=== PATIENT | female | born 1990 | race American Indian/Alaskan Native ===

== ENCOUNTER 2021-03-04 02:36 | Emergency (ER) | payer MEDICAID ==
[2021-03-04] MEDS ORDERED: SODIUM CHLORIDE 0.9% 1000 ML 1,000 ML IV ONE (04:26)
[2021-03-04] MEDS ORDERED: ONDANSETRON 4 MG/2 ML INJ IV ONE (04:26)
--- NOTE | 2021-03-04 04:30 | Emergency Department Report ---
<BETTY DAVENPORT - Last Filed: 03/04/21 07:07> ED General Adult HPI - General Chief complaint: Syncope Stated complaint: FAINTING, SOB Time Seen by Provider: 03/04/21 04:21 - Related Data Previous Rx's Medication Instructions Recorded Last Taken Type Ibuprofen [Motrin 600 MG tab] 600 mg PO Q8H PRN #60 tablet 03/28/15 Unknown Rx Ondansetron [Zofran Odt] 4 mg PO Q8HR PRN #14 tab.rapdis 03/04/21 Unknown Rx Allergies Allergy/AdvReac Type Severity Reaction Status Date / Time No Known Allergies Allergy Verified 03/04/21 04:42 ED Past Medical Hx - Medications Home Medications: Home Medications Medication Instructions Recorded Confirmed Last Taken Type Ibuprofen [Motrin 600 MG tab] 600 mg PO Q8H PRN #60 tablet 03/28/15 Unknown Rx Ondansetron [Zofran Odt] 4 mg PO Q8HR PRN #14 tab.rapdis 03/04/21 Unknown Rx ED Course - Reevaluation(s) Reevaluation #1: 03/04/21 07:09 Patient signed out to myself by the overnight physician. Went back to personally evaluate and examined this patient, after reviewing history, physical, laboratory studies and imaging studies. Patient is a 30-year-old female, who denies chronic medical issues, who is approximately 7 months , who presents to the ER today with complaint of painless lightheadedness. The patient specifically denies loss of consciousness, and reports that while walking, yesterday, and the day before, she felt lightheaded, felt like she had to steady herself on the wall, and had to lower herself down to the ground, but did not pass out or lose consciousness. There is no shaking or convulsive activity either. The patient denies travel, surgery, leg pain, leg swelling, immobilization, and personal/family history of DVT. She does report chronic nonspecific intermittent shortness of breath which has been present for over 7 months, and prior to the inception of her . She reports that she feels like she fell onto her right hand side, but does not have any significant physical pain there. She denies Covid symptomatology and urinary symptoms. She is awake, alert, oriented, sober, with a GCS of 15, and a nonfocal neur ologic examination at this time. Laboratory studies, ultrasound, EKG unremarkable. The patient is low risk for major adverse cardiac event as per the [place] syncope rule: -3 points [place] Syncope Risk Score Very low risk 0.4% risk of 30-day serious adverse event Suspect dehydration and/or vagal event. Given that the patient is not tachycardic, not hypoxic, given that she endorses several months of nonspecific shortness of breath which is not a new, worsened or different, given that patient did not lose consciousness, or truly have an event of syncope, I think a pulmonary embolism is very unlikely. The patient is counseled to not drive or operate motor vehicles, and she is counseled to follow-up with an outpatient money room supervisor within the next week. She has been observed in this ER for a few hours without clinical decompensation. Because she is a viable , we did recommend observation in labor and delivery, have discussed this with covering SCHOOL BOAT DRIVER, Dr. Hoang, who is amenable to monitoring. Urinalysis with 11 epithelial cells, no irritative or obstructive urinary symptoms, minimal contamination, however, patient denies urinary symptoms, leukoesterase negative, nitrate negative, would not initiate antibiotic therapy at this time. 03/04/21 07:12 03/04/21 07:14 ED Medical Decision Making - Lab Data Result diagrams: 03/04/21 04:34 03/04/21 04:34 Vital Signs 03/04/21 03/04/21 03/04/21 03:03 04:31 04:45 Temperature 98.4 F Pulse Rate 115 H 105 H 89 Respiratory 17 25 H 15 Rate Blood Pressure 133/51 111/67 106/57 O2 Sat by Pulse 100 100 99 Oximetry 03/04/21 03/04/21 03/04/21 05:01 05:15 05:31 Temperature Pulse Rate 96 H 93 H Respiratory 18 16 16 Rate Blood Pressure 109/59 107/62 108/70 O2 Sat by Pulse 100 100 100 Oximetry 03/04/21 03/04/21 03/04/21 05:45 06:01 06:15 Temperature Pulse Rate 97 H 96 H Respiratory 19 22 Rate Blood Pressure 104/60 106/67 119/65 O2 Sat by Pulse 100 100 100 Oximetry 03/04/21 03/04/21 06:31 06:45 Temperature Pulse Rate 97 H 90 Respiratory 19 13 Rate Blood Pressure 114/63 116/74 O2 Sat by Pulse 100 100 Oximetry Lab Results 03/04/21 03/04/21 03/04/21 Range/Units 04:34 04:34 06:53 WBC 10.7 (4.5-11.0) K/mm3 RBC 3.86 (3.65-5.03) M/mm3 Hgb 11.9 (10.1-14.3) gm/dl Hct 34.4 (30.3-42.9) % MCV 89 (79-97) fl MCH 31 (28-32) pg MCHC 35 H (30-34) % RDW 13.7 (13.2-15.2) % Plt Count 275 (140-440) K/mm3 Lymph % (Auto) 20.2 (13.4-35.0) % [place] % (Auto) 5.5 (0.0-7.3) % Eos % (Auto) 0.8 (0.0-4.3) % Baso % (Auto) 0.3 (0.0-1.8) % Lymph # (Auto) 2.2 (1.2-5.4) K/mm3 [place] # (Auto) 0.6 (0.0-0.8) K/mm3 Eos # (Auto) 0.1 (0.0-0.4) K/mm3 Baso # (Auto) 0.0 (0.0-0.1) K/mm3 Seg Neutrophils % 73.2 H (40.0-70.0) % Seg Neutrophils # 7.8 H (1.8-7.7) K/mm3 Sodium 136 L (137-145) mmol/L Potassium 3.7 (3.6-5.0) mmol/L Chloride 100.9 (98-107) mmol/L Carbon Dioxide 23 (22-30) mmol/L Anion Gap 16 mmol/L BUN 5 L (7-17) mg/dL Creatinine 0.5 L (0.6-1.2) mg/dL Estimated GFR > 60 ml/min BUN/Creatinine Ratio 10 % Glucose 115 H (65-100) mg/dL Calcium 9.0 (8.4-10.2) mg/dL Total Bilirubin < 0.20 (0.1-1.2) mg/dL Direct Bilirubin < 0.2 (0-0.2) mg/dL Indirect Bilirubin 0.0 mg/dL AST 19 (5-40) units/L ALT 18 (7-56) units/L Alkaline Phosphatase 106 (35-129) units/L Troponin T < 0.010 (0.00-0.029) ng/mL Total Protein 6.4 (6.3-8.2) g/dL Albumin 3.7 L (3.9-5) g/dL Albumin/Globulin Ratio 1.4 % Urine Color (Yellow) Urine Turbidity (Clear) Urine pH (5.0-7.0) Ur Specific [place] (1.003-1.030) Urine Protein (Negative) mg/dL Urine Glucose (UA) (Negative) mg/dL Urine Ketones (Negative) mg/dL Urine Blood (Negative) Urine Nitrite (Negative) Urine Bilirubin (Negative) Urine Urobilinogen (<2.0) mg/dL Ur Leukocyte Esterase (Negative) Urine WBC (Auto) (0.0-6.0) /HPF Urine RBC (Auto) (0.0-6.0) /HPF U Epithel Cells (Auto) (0-13.0) /HPF Urine Bacteria (Auto) (Negative) /HPF Urine Opiates Screen Urine Methadone Screen Ur Barbiturates Screen Ur Phencyclidine Scrn Ur Amphetamines Screen U Benzodiazepines Scrn Urine Cocaine Screen U Marijuana (THC) Screen 03/04/21 03/04/21 Range/Units Unknown Unknown WBC (4.5-11.0) K/mm3 RBC (3.65-5.03) M/mm3 Hgb (10.1-14.3) gm/dl Hct (30.3-42.9) % MCV (79-97) fl MCH (28-32) pg MCHC (30-34) % RDW (13.2-15.2) % Plt Count (140-440) K/mm3 Lymph % (Auto) (13.4-35.0) % [place] % (Auto) (0.0-7.3) % Eos % (Auto) (0.0-4.3) % Baso % (Auto) (0.0-1.8) % Lymph # (Auto) (1.2-5.4) K/mm3 [place] # (Auto) (0.0-0.8) K/mm3 Eos # (Auto) (0.0-0.4) K/mm3 Baso # (Auto) (0.0-0.1) K/mm3 Seg Neutrophils % (40.0-70.0) % Seg Neutrophils # (1.8-7.7) K/mm3 Sodium (137-145) mmol/L Potassium (3.6-5.0) mmol/L Chloride (98-107) mmol/L Carbon Dioxide (22-30) mmol/L Anion Gap mmol/L BUN (7-17) mg/dL Creatinine (0.6-1.2) mg/dL Estimated GFR ml/min BUN/Creatinine Ratio % Glucose (65-100) mg/dL Calcium (8.4-10.2) mg/dL Total Bilirubin (0.1-1.2) mg/dL Direct Bilirubin (0-0.2) mg/dL Indirect Bilirubin mg/dL AST (5-40) units/L ALT (7-56) units/L Alkaline Phosphatase (35-129) units/L Troponin T (0.00-0.029) ng/mL Total Protein (6.3-8.2) g/dL Albumin (3.9-5) g/dL Albumin/Globulin Ratio % Urine Color Yellow (Yellow) Urine Turbidity Slightly-cloudy (Clear) Urine pH 7.0 (5.0-7.0) Ur Specific [place] 1.009 (1.003-1.030) Urine Protein <15 mg/dl (Negative) mg/dL Urine Glucose (UA) Neg (Negative) mg/dL Urine Ketones Neg (Negative) mg/dL Urine Blood Neg (Negative) Urine Nitrite Neg (Negative) Urine Bilirubin Neg (Negative) Urine Urobilinogen < 2.0 (<2.0) mg/dL Ur Leukocyte Esterase Neg (Negative) Urine WBC (Auto) 2.0 (0.0-6.0) /HPF Urine RBC (Auto) 1.0 (0.0-6.0) /HPF U Epithel Cells (Auto) 11.0 (0-13.0) /HPF Urine Bacteria (Auto) 1+ (Negative) /HPF Urine Opiates Screen Negative Urine Methadone Screen Negative Ur Barbiturates Screen Negative Ur Phencyclidine Scrn Negative Ur Amphetamines Screen Negative U Benzodiazepines Scrn Negative Urine Cocaine Screen Negative U Marijuana (THC) Screen Negative - EKG Data -: EKG Interpreted by Ks EKG shows normal: sinus rhythm Rate: normal - EKG Data 03/04/21 07:08 EKG interpreted at 06: 00 Sinus rhythm, 94 bpm. Normal axis, normal intervals, high left ventricular voltage. This EKG is not a STEMI. This is an unremarkable EKG. There is no prior for comparison. - Radiology Data Radiology results: report reviewed, image reviewed [facility] [address] [place] [address] Ultrasound Report Signed Patient: MUNA CHAVEZ MR#: [id number] : 1990 Acct:[id number] Age/Sex: 30 / F ADM Date: 03/04/21 Loc: ED Attending Dr: Ordering Physician: JADA BRAVO Date of Service: 03/04/21 Procedure(s): US OB follow up Accession Number(s): [id number] cc: JADA Lerma US OB follow up INDICATION: Syncope, . TECHNIQUE: Transabdominal. COMPARISON: None available. FINDINGS: There is a single intrauterine . Biparietal Diameter = 6.4 cm Head Circumference = 24.3 cm Abdominal Circumference = 20.9 cm Femur Length = 4.8 cm Heart Rate: 157 beats per minute. Estimated Weight in grams (if calculated): 860 Position: cephalic. Cervix: closed. Length in cm (if measured): 3.2 Placenta: Grade 1 and free of the os. Amniotic Fluid Volume: normal Amniotic Fluid Index (AELE) in cm (if calculated): 13.8. Maternal Adnexa: Not well visualized. IMPRESSION: 1. Single, living intrauterine with estimated sonographic age of 26 weeks, 0 day(s). 2. No significant sonographic abnormality. Signer Name: Stefan Riggins MD Signed: 03/04/2021 6:47 AM Workstation Name: [id number] Transcribed By: CS Dictated By: Stefan Riggins MD Electronically Authenticated By: Stefan Riggins MD Signed Date/Time: 03/04/21646 DD/ 4 ED Disposition Clinical Impression: Nausea, Lightheadedness Qualifiers: Weeks of gestation: 26 weeks Qualified Code(s): Z3A.26 - 26 weeks gestation of Disposition: DC-01 TO HOME OR SELFCARE Is pt being admited?: No Does the pt Need Aspirin: No Condition: Good Instructions: Eating Plan for Women, Syncope, [id number], Syncope (ED) Additional Instructions: Recommend that patient eat at least 4-5 small meals per day. Recommend that patient drink 4 to 6 cups of water per day. Recommend that patient not drive, or operate motor vehicles until cleared to do so by a primary care physician or money room supervisor. We do recommend follow-up with a money room supervisor within the next 5 to 7 days. For the patient's convenience, a number of local cardiology practices have been listed. Patient had laboratory studies today which were unremarkable, and EKG today which was unremarkable, and an obstetrics ultrasound which showed an appropriate intrauterine , at 26 weeks gestation, with no obvious complications. Please continue current outpatient medications and vitamins. Please follow-up with your outpatient SCHOOL BOAT DRIVER within the next week, or as scheduled. Please return to the emergency room right away with new pain, worsened pain, migration of pain, projectile vomiting, change in mental status, confusion, inability to tolerate liquid feeds, new, worsened or different symptoms not present on the initial emergency room evaluation. Prescriptions: Ondansetron [Zofran Odt] 4 mg PO Q8HR PRN #14 tab.rapdis PRN Reason: Nausea And Vomiting Referrals: CONRAD LAMB MD [Primary Care Provider] - 3-5 Days [facility] [Provider Group] - 3-5 Days [facility] [Provider Group] - 3-5 Days <JADA BRAVO - Last Filed: 03/04/21 16:24> ED General Adult HPI - General Source: patient Mode of arrival: Ambulatory Limitations: No Limitations - History of Present Illness Initial comments: Patient is 30 years old female 3 para 2 at 7 months gestation. Patient presented with chief complaint of syncope that happened twice yesterday. Patient denied any passing out however she said that she fainted. Patient stated that she has some nausea but no vomiting. Patient denied any abdominal pain, vaginal bleeding or vaginal discharge. No chest pain or shortness of breath. Patient stated that she is followed by [facility]. ED Review of Systems ROS: Stated complaint: FAINTING, SOB Other details as noted in HPI Comment: All other systems reviewed and negative Constitutional: denies: chills, fever Respiratory: denies: cough, shortness of breath Cardiovascular: palpitations. denies: chest pain Gastrointestinal: nausea. denies: abdominal pain, vomiting, diarrhea, constipation, hematemesis, melena, hematochezia Musculoskeletal: denies: back pain Neurological: denies: headache, weakness ED Past Medical Hx - Past Medical History Hx Hypertension: No Hx Congestive Heart Failure: No Hx Diabetes: No Hx Deep Vein Thrombosis: No Hx Renal Disease: No Hx Sickle Cell Disease: No Hx Seizures: No Hx Asthma: No Hx COPD: No Hx HIV: No Additional medical history: childbirth - Surgical History Additional Surgical History: x 2 - Social History Smoking Status: Never Smoker Substance Use Type: None ED Physical Exam - General Limitations: No Limitations General appearance: alert, in no apparent distress - Head Head exam: Present: atraumatic, normocephalic, normal inspection - Eye Eye exam: Present: normal appearance, PERRL - ENT ENT exam: Present: mucous membranes dry - Neck Neck exam: Present: normal inspection, full ROM. Absent: tenderness, meningismus - Respiratory Respiratory exam: Present: normal lung sounds bilaterally - Cardiovascular Cardiovascular Exam: Present: regular rate, normal rhythm, normal heart sounds - GI/Abdominal GI/Abdominal exam: Present: soft, normal bowel sounds. Absent: distended, tenderness, guarding, rebound, rigid, organomegaly, mass, bruit, pulsatile mass, hernia - Extremities Exam Extremities exam: Present: normal inspection, full ROM, normal capillary refill. Absent: pedal edema, calf tenderness - Back Exam Back exam: Present: normal inspection, full ROM. Absent: CVA tenderness (R), CVA tenderness (L) - Neurological Exam Neurological exam: Present: alert, oriented X3, CN II-XII intact - Psychiatric Psychiatric exam: Present: normal mood - Skin Skin exam: Present: warm, intact, normal color ED Course Vital Signs 03/04/21 03/04/21 03/04/21 03:03 04:31 04:45 Temperature 98.4 F Pulse Rate 115 H 105 H 89 Respiratory 17 25 H 15 Rate Blood Pressure 133/51 111/67 106/57 O2 Sat by Pulse 100 100 99 Oximetry 03/04/21 03/04/21 03/04/21 05:01 05:15 05:31 Temperature Pulse Rate 96 H 93 H Respiratory 18 16 16 Rate Blood Pressure 109/59 107/62 108/70 O2 Sat by Pulse 100 100 100 Oximetry 03/04/21 03/04/21 03/04/21 05:45 06:01 06:15 Temperature Pulse Rate 97 H 96 H Respiratory 19 22 Rate Blood Pressure 104/60 106/67 119/65 O2 Sat by Pulse 100 100 100 Oximetry 03/04/21 03/04/21 03/04/21 06:31 06:45 07:01 Temperature Pulse Rate 97 H 90 91 H Respiratory 19 13 18 Rate Blood Pressure 114/63 116/74 112/64 O2 Sat by Pulse 100 100 100 Oximetry 03/04/21 03/04/21 07:15 07:31 Temperature Pulse Rate 98 H 93 H Respiratory 21 14 Rate Blood Pressure 119/76 112/62 O2 Sat by Pulse 100 100 Oximetry ED Medical Decision Making - Lab Data Result diagrams: 03/04/21 04:34 03/04/21 04:34 - Medical Decision Making Patient is 30 years old female 3 para 2 at 7 months gestation. Patient presented with chief complaint of syncope that happened twice yesterday. Patient denied any passing out however she said that she fainted. Patient stated that she has some nausea but no vomiting. Patient denied any abdominal pain, vaginal bleeding or vaginal discharge. No chest pain or shortness of breath. Patient stated that she is followed by [facility]. Critical care attestation.: If time is entered above; I have spent that time in minutes in the direct care of this critically ill patient, excluding procedure time. ED Disposition Is pt being admited?: No
[2021-03-04 04:45] LABS: Basophils % (Auto) 0.3 % (0.0-1.8); Eosinophils # (Auto) 0.1 K/mm3 (0.0-0.4); Eosinophils % (Auto) 0.8 % (0.0-4.3); Hematocrit 34.4 % (30.3-42.9); Hemoglobin 11.9 gm/dl (10.1-14.3); Lymphocytes # (Auto) 2.2 K/mm3 (1.2-5.4); Lymphocytes % (Auto) 20.2 % (13.4-35.0); Mean Corpuscular HGB Conc 35 % (30-34); Mean Corpuscular Volume 89 fl (79-97); Monocytes # (Auto) 0.6 K/mm3 (0.0-0.8); Monocytes % (Auto) 5.5 % (0.0-7.3); Platelet Count 275 K/mm3 (140-440); Red Blood Count 3.86 M/mm3 (3.65-5.03); Red Cell Distribution Width 13.7 % (13.2-15.2)
[2021-03-04 05:07] LABS: Alanine Aminotransferase 18 units/L (7-56); Albumin 3.7 g/dL (3.9-5); Blood Urea Nitrogen 5 mg/dL (7-17); Hemolysis Index 1
[2021-03-04 05:10] LABS: BUN/Creatinine Ratio 10; Bilirubin,Direct < 0.2 mg/dL (0-0.2)
[2021-03-04 06:18] LABS: Bacteria,Urine 1+ /HPF (Negative); Bilirubin,Urine NEG (Negative); Blood,Urine NEG (Negative); Color,Urine Yellow (Yellow); Protein,Urine <15 mg/dL mg/dL (Negative); Urobilinogen,Urine < 2.0 mg/dL (<2.0)
--- NOTE | 2021-03-04 06:51 | Ultrasound Report ---
US OB follow up INDICATION: Syncope, . TECHNIQUE: Transabdominal. COMPARISON: None available. FINDINGS: There is a single intrauterine . Biparietal Diameter = 6.4 cm Head Circumference = 24.3 cm Abdominal Circumference = 20.9 cm Femur Length = 4.8 cm Heart Rate: 157 beats per minute. Estimated Weight in grams (if calculated): 860 Position: cephalic. Cervix: closed. Length in cm (if measured): 3.2 Placenta: Grade 1 and free of the os. Amniotic Fluid Volume: normal Amniotic Fluid Index (ALEE) in cm (if calculated): 13.8. Maternal Adnexa: Not well visualized. IMPRESSION: 1. Single, living intrauterine with estimated sonographic age of 26 weeks, 0 day(s). 2. No significant sonographic abnormality. Signer Name: Stefan Riggins MD Signed: 03/04/2021 6:47 AM Workstation Name: [id number]
[2021-03-04 07:04] LABS: Amphetamine Screen,Urine Negative; Benzodiazepines Screen,Urine Negative; Cannabinoid Screen,Urine Negative; Cocaine Screen,Urine Negative; Methadone Screen,Urine Negative; Opiate Screen,Urine Negative
[2021-03-04 08:47] VITALS: BP 112/62
--- NOTE | 2021-03-05 17:52 | Electrocardiograph Report ---
[facility] Test Date: 2021-03-04 Test Time: 06:00:34 Pat Name: MUNA CHAVEZ Department: Room: Gender: F Outside Sales Consultant: LEONIE : 1990 Requested By: JADA BRAVO Order Number: [id number] Reading MD: Clarissa Sunshine Measurements Intervals [place] Rate: 94 P: 59 TN: 159 QRS: 79 QRSD: 77 T: 24 QT: 351 QTc: 439 Interpretive Statements Sinus rhythm No previous ECG available for comparison Electronically Signed On 03-05-2021 17:52:30 EDT by Clarissa Sunshine
== END 2021-03-04 08:52 | disposition home or self-care (01) ==
LOC: ED 02:36
DX: O26.892 Other specified pregnancy related conditions, second trimester (principal); R11.0 Nausea; R42 Dizziness and giddiness; Z3A.26 26 weeks gestation of pregnancy; Z98.890 Other specified postprocedural states; Z79.1 Long term (current) use of non-steroidal anti-inflammatories (NSAID); Z79.899 Other long term (current) drug therapy
CPT/HCPCS: 36415; 76816; 80048; 80076; 80307; 81001; 84484; 85025; 93005; 96361; 96374; 99284; J2405; J7030

== ENCOUNTER 2021-06-05 02:50 | Inpatient (IN) | payer MEDICAID ==
[2021-06-05] MEDS ORDERED: LACTATED RINGERS 1,000 ML ONE (03:23)
[2021-06-05] MEDS ORDERED: LACTATED RINGERS 1,000 ML IV ONE (03:43)
[2021-06-05 04:28] LABS: Basophils % (Auto) 0.3 % (0.0-1.8); Eosinophils % (Auto) 0.5 % (0.0-4.3); Hematocrit 33.4 % (30.3-42.9); Hemoglobin 10.7 gm/dl (10.1-14.3); Lymphocytes # (Auto) 2.4 K/mm3 (1.2-5.4); Lymphocytes % (Auto) 27.6 % (13.4-35.0); Mean Corpuscular HGB Conc 32 % (30-34); Mean Corpuscular Volume 81 fl (79-97); Monocytes # (Auto) 0.6 K/mm3 (0.0-0.8); Monocytes % (Auto) 7.4 % (0.0-7.3); Platelet Count 325 K/mm3 (140-440); Red Blood Count 4.13 M/mm3 (3.65-5.03); Red Cell Distribution Width 16.5 % (13.2-15.2)
--- NOTE | 2021-06-05 04:49 | History and Physical Report ---
<CYDNEY DELA CRUZ - Last Filed: 06/05/21 04:40> History of Present Illness Date of examination: 06/05/21 Chief complaint: Spontaneous rupture membranes previous section x2 Patient desires TOLAC and declines repeat section at bedside Past History Past Surgical History: section - Obstetrical History Expected Date of Delivery: 06/10/21 Actual Gestation: 39 Week(s) 2 Day(s) : 3 Para: 2 Medications and Allergies Allergies Allergy/AdvReac Type Severity Reaction Status Date / Time No Known Allergies Allergy Verified 03/04/21 04:42 Home Medications Medication Instructions Recorded Confirmed Last Taken Type Ibuprofen [Motrin 600 MG tab] 600 mg PO Q8H PRN #60 tablet 03/28/15 06/05/21 Unknown Rx Ondansetron [Zofran Odt] 4 mg PO Q8HR PRN #14 tab.rapdis 03/04/21 06/05/21 Unknown Rx Active Meds: Active Medications Lactated Ringer's (Lactated Ringers) 1,000 mls @ 999 mls/hr IV BOLUS ONE Stop: 06/05/21 04:43 - Vital Signs Vital signs: Vital Signs Pulse Pulse Ox 104 H 99 06/05/21 02:54 06/05/21 02:54 Temp Pulse Resp BP Pulse Ox 98.8 F 74 18 130/73 99 06/05/21 02:57 06/05/21 04:39 06/05/21 02:57 06/05/21 02:57 06/05/21 04:39 - Physical Exam Breasts: Positive: deferred Cardiovascular: Regular rate Lungs: Positive: Clear to auscultation Abdomen: Positive: normal appearance, soft, normal bowel sounds Genitourinary (Female): Positive: normal external genitalia, normal perenium Anus/Rectum: Positive: normal perianal skin Extremities: Positive: normal Deep Tendon Reflex Grade: Normal +2 - Obstetrical FHR: category 1 Cervical Dilatation: 1 Cervical Effacement Percentage: 70 station: -2 Uterine Contraction Pattern: Irregular Results Result Diagrams: 06/05/21 03:35 Abnormal lab results 06/05/21 Range/Units 03:35 MCH 26 L (28-32) pg RDW 16.5 H (13.2-15.2) % [place] % (Auto) 7.4 H (0.0-7.3) % All other labs normal. Assessment and Plan Admit continuous monitoring gbs coverage as needed r/b/c and possible side effect reviewed CRafael Dela Cruz MD <NICHELLE CANO JR - Last Filed: 06/05/21 09:06> History of Present Illness Date of admission: 06/05/21 04:59 History of present illness: Patient presenting for spontaneous rupture of membranes at 1 cm with a history of prior x2 adamantly refusing c/s. +FM. Denies PIH symptoms. Past History Past Medical History: no pertinent history Family/Genetic History: hypertension Medications and Allergies Active Meds: Active Medications Acetaminophen (Acetaminophen 325 Mg Tab) 650 mg PO Q4H PRN PRN Reason: Pain, Mild (1-3) Butorphanol Tartrate (Butorphanol 2 Mg/1 Ml Inj) 1 mg IV Q2H PRN PRN Reason: Pain, Moderate(4-6) LABOR PAIN Carboprost Tromethamine (Carboprost Tromethamine 250 Mcg/1 Ml Inj) 250 mcg IM ONCE PRN PRN Reason: Uterine Bleeding Ephedrine Sulfate (Ephedrine Sulfate 50 Mg/1 Ml Inj) 10 mg IV Q2M PRN PRN Reason: Hypotension Fentanyl (Fentanyl 100 Mcg/2 Ml Inj) 100 mcg IV Q2H PRN PRN Reason: Pain,Severe (7-10) LABOR PAIN Oxytocin/Sodium Chloride (Pitocin/Ns 30 Unit/500ml) 30 units in 500 mls @ 2 mls/hr IV TITR MARK; Protocol Lactated Ringer's (Lactated Ringers) 1,000 mls @ 125 mls/hr IV DIRECT MARK Oxytocin/Sodium Chloride (Pitocin/Ns 30 Unit/500ml) 30 units in 500 mls @ 40 mls/hr IV TITR MARK; Protocol Ampicillin Sodium (Ampicillin/Ns 1 Gm/50 Ml) 1 gm in 50 mls @ 100 mls/hr IV Q4H MARK; Protocol Fentanyl/Bupivacaine/Sodium Chlor (Fentanyl-Bupiv 2 Mcg/Ml-0.125%) 200 mcg in 100 mls @ 12 mls/hr EPIDURAL TITR MARK; Protocol Loperamide HCl (Loperamide 2 Mg Cap) 2 mg PO ONCE PRN PRN Reason: give with Hemabate Methylergonovine Maleate (Methylergonovine Maleate 0.2 Mg/Ml Vial) 0.2 mg IM ONCE PRN PRN Reason: Uterine Bleeding Mineral Oil (Mineral Oil 30 Ml Oral Liqd) 30 ml PO QHS PRN PRN Reason: Constipation Misoprostol (Misoprostol 200 Mcg Tab) 800 mcg MT ONCE PRN PRN Reason: Uterine Bleeding Nalbuphine HCl (Nalbuphine 10 Mg/1 Ml Inj) 10 mg IV Q2H PRN PRN Reason: Pain, Moderate (4-6) Naloxone HCl (Naloxone 2 Mg/2 Ml Inj) 0.2 mg IV Q5M PRN PRN Reason: Respiratory sedation Ondansetron HCl (Ondansetron 4 Mg/2 Ml Inj) 4 mg IV Q8H PRN PRN Reason: Nausea And Vomiting Oxytocin (Oxytocin 10 Unit/1 Ml Inj) 10 unit IM ONCE PRN PRN Reason: Uterine Bleeding Promethazine HCl (Promethazine 25 Mg Tab) 25 mg PO Q6H PRN PRN Reason: Nausea And Vomiting Terbutaline Sulfate (Terbutaline 1 Mg/1 Ml Inj) 0.25 mg SUB-Q ONCE PRN PRN Reason: Hyperstimulation/Hypertonicity Review of Systems All systems: negative (expect HPI) - Vital Signs Vital signs: Vital Signs Pulse Pulse Ox 104 H 99 06/05/21 02:54 06/05/21 02:54 Temp Pulse Resp BP Pulse Ox 98.1 F 81 18 112/58 99 06/05/21 07:53 06/05/21 08:59 06/05/21 02:57 06/05/21 08:58 06/05/21 08:59 Results Result Diagrams: 06/05/21 03:35 Abnormal lab results 06/05/21 Range/Units 03:35 MCH 26 L (28-32) pg RDW 16.5 H (13.2-15.2) % [place] % (Auto) 7.4 H (0.0-7.3) % All other labs normal. Assessment and Plan Though with cervical change, fetus now with recurrent late decelerations without any augmentation or induction agents. Spoke with patient and family member multiple times on recommending at this time who are initially resistant to the idea of . However after continue counseling does appear to be agreeable to repeat .
[2021-06-05] MEDS ORDERED: ePHEDrine SULFATE 50 MG/1 ML INJ IV PRN ×2 (04:59→07:30)
[2021-06-05] MEDS ORDERED: miSOPROStol 200 MCG TAB PR PRN (04:59)
[2021-06-05] MEDS ORDERED: NalbUPHINE 10 MG/1 ML INJ IV PRN (04:59)
[2021-06-05] MEDS ORDERED: ONDANSETRON 4 MG/2 ML INJ IV PRN ×2 (04:59→12:00)
[2021-06-05] MEDS ORDERED: LOPERAMIDE 2 MG CAP PO PRN (04:59)
[2021-06-05] MEDS ORDERED: TERBUTALINE 1 MG/1 ML INJ SUB-Q PRN (04:59)
[2021-06-05] MEDS ORDERED: CARBOPROST TROMETHAMINE 250 MCG/1 ML INJ IM PRN (04:59)
[2021-06-05] MEDS ORDERED: MINERAL OIL 30 ML ORAL LIQD PO PRN (04:59)
[2021-06-05] MEDS ORDERED: BUTORPHANOL 2 MG/1 ML INJ IV PRN (04:59)
[2021-06-05] MEDS ORDERED: ACETAMINOPHEN 325 MG TAB PO PRN ×2 (04:59→12:00)
[2021-06-05] MEDS ORDERED: fentaNYL 100 MCG/2 ML INJ IV PRN (04:59)
[2021-06-05] MEDS ORDERED: METHYLERGONOVINE MALEATE 0.2 MG/ML VIAL IM PRN (04:59)
[2021-06-05] MEDS ORDERED: LIDOCAINE (2%) 20 MG/1 ML VIAL 20 ML MDV INFILTRATI ONE (04:59)
[2021-06-05] MEDS ORDERED: PROMETHAZINE 25 MG TAB PO PRN (04:59)
[2021-06-05] MEDS ORDERED: OXYTOCIN 10 UNIT/1 ML INJ IM PRN (04:59)
[2021-06-05] MEDS ORDERED: OXYTOCIN DRIP 30 UNITS/500 ML BAG IV SCH ×4 (05:00→12:00)
[2021-06-05] MEDS ORDERED: LACTATED RINGERS 1,000 ML IV SCH ×2 (05:00→09:15)
[2021-06-05] MEDS ORDERED: AMPICILLIN/NS 2 GM/100 ML 2 GM/100 ML BAG IV ONE (05:02)
[2021-06-05] MEDS ORDERED: AMPICILLIN/NS 1 GM/50 ML 1 GM/50 ML BAG IV SCH (06:00)
--- NOTE | 2021-06-05 07:13 | Anesthesia Consultation ---
Anesthesia Consult and Med Hx Date of service: 06/05/21 - Airway Anesthetic Teeth Evaluation: Good ROM Head & Neck: Adequate Mental/Hyoid Distance: Adequate Mallampati Class: Class II Intubation Access Assessment: Probably Good - Pulmonary Exam CTA: Yes - Cardiac Exam Cardiac Exam: RRR - Pre-Operative Health Status ASA Pre-Surgery Classification: ASA2 Proposed Anesthetic Plan: Epidural - Pulmonary Hx Asthma: No COPD: No Hx Pneumonia: No - Cardiovascular System Hx Hypertension: No - Central Nervous System Hx Seizures: No Hx Psychiatric Problems: No - Endocrine Hx Renal Disease: No Hx End Stage Renal Disease: No Hx Hypothyroidism: No Hx Hyperthyroidism: No - Hematic Hx Anemia: No Hx Sickle Cell Disease: No - Other Systems Hx Alcohol Use: No
[2021-06-05] MEDS ORDERED: NALOXONE 2 MG/2 ML INJ IV PRN (07:30)
[2021-06-05] MEDS ORDERED: fentaNYL-BUPIV 2 MCG/ML-0.125% 200 MCG/100 ML BAG EPIDURAL SCH (08:00)
[2021-06-05] MEDS ORDERED: METOCLOPRAMIDE 10 MG/2 ML INJ ONE (09:26)
[2021-06-05] MEDS ORDERED: BICITRA ORAL LIQD 30ML ONE (09:26)
[2021-06-05] MEDS ORDERED: FAMOTIDINE 20 MG/2 ML INJ IV ONE (09:26)
[2021-06-05] MEDS ORDERED: FAMOTIDINE 20 MG/2 ML INJ IV SCH (09:30)
[2021-06-05] MEDS ORDERED: METOCLOPRAMIDE 10 MG/2 ML INJ IV SCH (09:30)
[2021-06-05] MEDS ORDERED: ceFAZolin/Water 2 GM/20 ML 2 GM/20 ML SYRINGE IV NR (09:30)
[2021-06-05] MEDS ORDERED: BICITRA ORAL LIQD 30ML PO SCH (09:30)
[2021-06-05] MEDS ORDERED: SODIUM CHLORIDE 0.9% IRR 1,500 ML BOTTLE IR ONE (10:00)
[2021-06-05] MEDS ORDERED: WATER FOR IRRIG STERILE 1,500 ML BOTTLE IR ONE (10:00)
[2021-06-05] MEDS ORDERED: ceFAZolin/STERILE WATER 2 GM/20 ML SYRINGE IV ONE (10:00)
[2021-06-05 10:12] LABS: Hematocrit 32.1 % (30.3-42.9); Hemoglobin 10.3 gm/dl (10.1-14.3)
--- NOTE | 2021-06-05 10:44 | Progress Note ---
Labor Epidural - Labor Epidural Start Time: 07:38 Stop Time: 07:43 Performed by:: ALEXANDRU XIE Procedure: Patient is requesting epidural for labor pain. H&P, and labs reviewed. Procedure explained, questions answered, consent obtained. Patient in sitting position with blood pressure cuff and pulse ox on and working. Timeout performed immediately before start of procedure. Sterile chlorahexadine 0.5% prep/drape. 5 mL 1% lidocaine skin wheal at L[3]-L[4]. 17-gauge tuohy epidural needle advanced to [id number] with saline at [7] cm. Epidural dexmedetomidine [30] mcg administered. Epidural catheter advanced to [12] cm, negative aspiration for blood and csf, negative test dose 3 ml 1.5% lidocaine with epinephrine. Sterile sponge and tegaderm applied, followed by tape reinforcement. Patient tolerated procedure well.
[2021-06-05] MEDS ORDERED: SODIUM BICARB 8.4% 50 MEQ/50 ML VIAL IV ONE (11:17)
[2021-06-05] MEDS ORDERED: PHENYLEPHRINE/NS 1,000 MCG/10 ML SYRINGE (OR USE) IV ONE (11:17)
[2021-06-05] MEDS ORDERED: SODIUM CHLORIDE P/F VIAL 10 ML 10 ML ONE (11:17)
[2021-06-05] MEDS ORDERED: BUPIVACAINE/PF (0.25%) 2.5 MG/ML 30 ML VIAL INFILTRATI ONE (11:17)
[2021-06-05] MEDS ORDERED: dexAMETHasone 20 MG/5 ML VIAL ONE (11:17)
[2021-06-05] MEDS ORDERED: KETOROLAC 30 MG/1 ML INJ ONE (11:17)
[2021-06-05] MEDS ORDERED: LIDOCAINE 2%/EPINEPHRINE 1:200,000 VIAL (20 ML) INFILTRATI ONE (11:17)
--- NOTE | 2021-06-05 11:27 | Procedure Note ---
OB Delivery Note - Delivery Date of Delivery: 06/05/21 Surgeon: NICHELLE CANO JR Estimated blood loss: other (390cc QBL) - Section Preop diagnosis: repeat , nonreassuring FHR tracing Postop diagnosis: same section procedure: section, repeat low transverse Disposition: PACU Complications: none Narrative: Indication: 30-year-old at 39+ weeks, given history of prior x2 originally declining repeat desiring TOLAC however with nonreassuring heart tones for repeat . Findings: Normal uterus, tubes and ovaries. Clear fluid. No nuchal cord. Delivery of female infant at 1019 Weight 2990g Height 19.5 in APGARS 9/9 EBL 390 QBL IVF 1750cc UOP 50cc Procedure: Patient was taken to the operating room prepped and draped in the usual sterile fashion. Pfannenstiel skin incision was made and carried down to the underlying fascia. Fascia was incised and the incision was distended bilaterally. Rectus fascia was dissected off the rectus muscle superiorly and inferiorly. Peritoneum was identified and entered. Peritoneal incision extended superiorly and inferiorly. The bladder was visualized. The bladder blade was placed. Uterine hysterotomy incision was made and extended bilaterally. The baby was delivered in the typical vertex fashion. Baby was bulb suction at delivery. The cord was cut and clamped and handed off to the team. The placenta was delivered spontaneously. The uterus was e xteriorized and cleared of all clots and debris. Uterine incision was closed with a 0 Vicryl in a running locked fashion. Good hemostasis was noted at the 2 [id number] sutures applied to the uterine incision. Surgicel was applied to the uterine incisional base to provide hemostasis. The urine was noted to be pink tinged. Bladder was backfilled with 120 cc of sterile milk with no extravasation noted. Uterus, tubes, and ovaries were returned to the abdominal cavity. Bilateral gutters were cleared and the abdomen and pelvis were irrigated. Good hemostasis noted. The rectus muscle was reapproximated with 2- 0 Vicryl. Attention was directed towards the rectus fascia which was reapproximated with 0 PDS in a running fashion. The subcutaneous tissue was irrigated and reapproximated with 2-0 Vicryl in a running fashion. Skin was closed with a 4-0 Vicryl in a subcuticular fashion. The procedure was completed and the patient tolerated the procedure well. All instruments and lap counts were correct x2. - Infant A at 1 minute: 9 at 5 minutes: 9 Gender: Female
[2021-06-05] MEDS ORDERED: ONDANSETRON 4 MG/2 ML INJ ONE (11:30)
[2021-06-05] MEDS ORDERED: NALOXONE 0.4 MG/1 ML INJ IV PRN (12:00)
[2021-06-05] MEDS ORDERED: HYDROCORTISONE 25 MG RECTAL SUPP PR PRN (12:00)
[2021-06-05] MEDS ORDERED: SENNOSIDES 8.6 MG TAB PO PRN (12:00)
[2021-06-05] MEDS ORDERED: PROMETHAZINE 25 MG RECT SUPP PR PRN (12:00)
[2021-06-05] MEDS ORDERED: WITCH HAZEL/ GLYCERIN PAD TP PRN (12:00)
[2021-06-05] MEDS ORDERED: LANOLIN/ZINC/DIMETHICONE (LANSINOH) 7 GM TP PRN (12:00)
[2021-06-05] MEDS ORDERED: SIMETHICONE 80 MG CHEW TAB PO PRN (12:00)
[2021-06-05] MEDS ORDERED: MORPHINE 4 MG/1 ML INJ IV PRN (12:00)
[2021-06-05] MEDS: KETOROLAC 30 MG/1 ML INJ IV SCH (17:33)
[2021-06-05] MEDS ORDERED: MAGNESIUM HYDROXIDE (MOM) ORAL LIQD UDC PO PRN (22:00)
[2021-06-05 23:18] LABS: Hematocrit 32.8 % (30.3-42.9); Hemoglobin 10.5 gm/dl (10.1-14.3)
[2021-06-06] MEDS: KETOROLAC 30 MG/1 ML INJ IV SCH (00:54)
[2021-06-06] MEDS: oxyCODONE /ACETAMINOPHEN 5-325MG TAB PO PRN (04:45)
--- NOTE | 2021-06-06 10:03 | Post Anesthesia Evaluation ---
- Post Anesthesia Evaluation Patient Participated: Yes Airway Patent: Yes Stable Respiratory Function: Yes Nausea/Vomiting: No Temp > 96.8F: Yes Pain Manageable: Yes Adequeate Hydration: Yes Anesthesia Complications: No Block Receding Appropriately: Yes Patient on Ventilator: No
--- NOTE | 2021-06-06 13:20 | Progress Note ---
Assessment and Plan POD#1 C/S doing fair 1. Charge notified that pt desires technology sales consultant and since same not available, pt's nurse will do instruction today and pt notified of same 2. CBC seen and pt reassured that she had minimal blood loss 3. Pt encouraged to ambulate in the room 4. All questions encouraged and answered Subjective Date of service: 06/06/21 Principal diagnosis: POD#1 C/Sect Interval history: Pt desires to breast feed and technology sales consultant not present per charge nurse report. Pt has passed flatus and denies nausea and vomiting. pt has voided without difficulty. Pain controlled with meds. Denies N/V/F/C Objective - Constitutional Vitals: Vital Signs - 12hr 06/06/21 06/06/21 06/06/21 04:39 08:00 08:21 Temperature 98.7 F 98.3 F Pulse Rate 72 83 Respiratory 16 18 Rate Blood Pressure 114/66 101/47 O2 Sat by Pulse 99 96 Oximetry O2 Sat by Pulse 98 Oximetry [ Bilateral Throughout] General appearance: Present: no acute distress - Respiratory Respiratory effort: normal - Breasts Breasts: normal - Cardiovascular Rhythm: regular Extremities: No edema - Gastrointestinal General gastrointestinal: Present: soft, non-tender - Genitourinary Female genitourinary: other (Fundus firm, non-tender and dressing C/D/I) - Integumentary Integumentary: clear, warm - Neurologic Neurologic: CNII-XII intact - Labs CBC & Chem 7: 06/05/21 22:54 Medications & Allergies - Medications Allergies/Adverse Reactions: Allergies No Known Allergies Allergy (Verified 03/04/21 04:42) Home Medications: Home Medications Medication Instructions Recorded Confirmed Last Taken Type Ibuprofen [Motrin 600 MG tab] 600 mg PO Q8H PRN #60 tablet 03/28/15 06/05/21 Unknown Rx Ondansetron [Zofran Odt] 4 mg PO Q8HR PRN #14 tab.rapdis 03/04/21 06/05/21 Unknown Rx Ibuprofen [Motrin 800 MG tab] 800 mg PO Q6H PRN #30 tablet 06/05/21 Unknown Rx oxyCODONE /ACETAMINOPHEN [Percocet 1 tab PO Q6H PRN #30 tablet 06/05/21 Unknown Rx 5/325 mg] Active Medications: Generic Name Dose Route Start Last Admin Trade Name Prachi PRN Reason Stop Dose Admin Acetaminophen 650 mg 06/05/21 12:00 Acetaminophen 325 Mg Tab PO Q4H PRN Fever >100.5/CELESTIN Carboprost Tromethamine 250 mcg 06/05/21 04:59 Carboprost Tromethamine 250 Mcg/1 Ml Inj IM ONCE PRN Uterine Bleeding Ephedrine Sulfate 10 mg 06/05/21 07:30 Ephedrine Sulfate 50 Mg/1 Ml Inj IV Q2M PRN Hypotension Hydrocortisone Acetate 25 mg 06/05/21 12:00 Hydrocortisone 25 Mg Rectal Supp OR BID PRN Hemorrhoids Lactated Ringer's 1,000 mls @ 125 mls/hr 06/05/21 05:00 06/05/21 21:15 Lactated Ringers IV 125 mls/hr DIRECT MARK Administration Ampicillin Sodium 1 gm in 50 mls @ 100 mls/hr 06/05/21 06:00 Ampicillin/Ns 1 Gm/50 Ml IV Q4H MARK Protocol Fentanyl/Bupivacaine/Sodium Chlor 200 mcg in 100 mls @ 12 mls/hr 06/05/21 08:00 Fentanyl-Bupiv 2 Mcg/Ml-0.125% EPIDURAL TITR MARK Protocol Oxytocin/Sodium Chloride 30 units in 500 mls @ 40 mls/hr 06/05/21 12:00 Pitocin/Ns 30 Unit/500ml IV TITR MARK Protocol Ibuprofen 800 mg 06/05/21 12:00 Ibuprofen 800 Mg Tab PO Q6H PRN Pain, Mild (1-3) Loperamide HCl 2 mg 06/05/21 04:59 Loperamide 2 Mg Cap PO ONCE PRN give with Hemabate Magnesium Hydroxide 30 ml 06/05/21 22:00 Magnesium Hydroxide (Mom) Oral Liqd Udc PO QHS PRN Constip Unrelieved By Senna Methylergonovine Maleate 0.2 mg 06/05/21 04:59 Methylergonovine Maleate 0.2 Mg/Ml Vial IM ONCE PRN Uterine Bleeding Misoprostol 800 mcg 06/05/21 04:59 Misoprostol 200 Mcg Tab OR ONCE PRN Uterine Bleeding Morphine Sulfate 4 mg 06/05/21 12:00 06/05/21 19:28 Morphine 4 Mg/1 Ml Inj IV 4 mg Q4H PRN Administration Pain , Severe (7-10) Multi-Ingredient Ointment 1 applic 06/05/21 12:00 06/06/21 10:19 Lanolin/Zinc/Dimethicone (Lansinoh) 7 Gm TP 1 applic PRN PRN Administration dryness/cracking Naloxone HCl 0.1 mg 06/05/21 12:00 Naloxone 0.4 Mg/1 Ml Inj IV Q2MIN PRN Res Rate </= 8 or 02 SAT < 92% Ondansetron HCl 4 mg 06/05/21 12:00 Ondansetron 4 Mg/2 Ml Inj IV Q8H PRN Nausea And Vomiting Oxycodone/Acetaminophen 1 tab 06/05/21 12:00 06/06/21 04:45 Oxycodone /Acetaminophen 5-325mg Tab PO 1 tab Q6H PRN Administration Pain, Moderate (4-6) Oxytocin 10 unit 06/05/21 04:59 Oxytocin 10 Unit/1 Ml Inj IM ONCE PRN Uterine Bleeding Promethazine HCl 25 mg 06/05/21 04:59 Promethazine 25 Mg Tab PO Q6H PRN Nausea And Vomiting Promethazine HCl 25 mg 06/05/21 12:00 Promethazine 25 Mg Rect Supp OR Q6H PRN N/V IF NPO AND NO IV ACCESS Senna 17.2 mg 06/05/21 12:00 Sennosides 8.6 Mg Tab PO QHS PRN Constipation Simethicone 80 mg 06/05/21 12:00 Simethicone 80 Mg Chew Tab PO Q6H PRN Gas pain Sodium Chloride 10 ml 06/05/21 12:00 Sodium Chloride 0.9% 10 Ml Flush Syringe IV PRN PRN flush Witch Barbara/Glycerin 1 each 06/05/21 12:00 06/06/21 10:19 Witch Barbara/ Glycerin Pad TP 1 each PRN PRN Administration Hemorrhoids/cleansing/soothing
[2021-06-06] MEDS: IBUPROFEN 800 MG TAB PO PRN ×2 (16:36→23:24)
[2021-06-07] MEDS: IBUPROFEN 800 MG TAB PO PRN (06:00)
--- NOTE | 2021-06-07 11:32 | Progress Note ---
Assessment and Plan POD#2 C/Section doing fair, with moist wound and endomyometritis 1. Will open wound to air and give augmentin and change strips later with re- evaluation when wound is dry 2. routine post op care Plan of care discussed and pt agreeable with plan Subjective Date of service: 06/07/21 Principal diagnosis: POD#2 C/Sect Interval history: pt has been voiding well and has tried breast feeding today. Vag bleed less than a period. pt tolerates diet well. Denies N/V/F/C. Pt has passed flatus Objective - Constitutional Vitals: Vital Signs - 12hr 06/06/21 06/07/21 06/07/21 23:24 00:42 06:00 Temperature 98.6 F Pulse Rate 87 Respiratory 18 20 18 Rate Blood Pressure 113/59 O2 Sat by Pulse 97 Oximetry O2 Sat by Pulse Oximetry [ Bilateral Throughout] 06/07/21 06/07/21 07:48 08:00 Temperature 98.0 F Pulse Rate 92 H Respiratory 18 Rate Blood Pressure 113/56 O2 Sat by Pulse 97 Oximetry O2 Sat by Pulse 98 Oximetry [ Bilateral Throughout] General appearance: Present: no acute distress - Respiratory Respiratory effort: normal - Breasts Breasts: normal - Cardiovascular Rhythm: regular Extremities: No edema - Gastrointestinal General gastrointestinal: Present: soft, non-tender, other (Incision wet when dressing removed. Steristrips in place. ) - Genitourinary Female genitourinary: other (Uterus firm 1cm below umbilicus and positive tende rness) - Neurologic Neurologic: moves all extremities - Psychiatric Psychiatric: appropriate mood/affect - Labs CBC & Chem 7: 06/05/21 22:54 Medications & Allergies - Medications Allergies/Adverse Reactions: Allergies No Known Allergies Allergy (Verified 03/04/21 04:42) Home Medications: Home Medications Medication Instructions Recorded Confirmed Last Taken Type Ibuprofen [Motrin 600 MG tab] 600 mg PO Q8H PRN #60 tablet 03/28/15 06/05/21 Unknown Rx Ondansetron [Zofran Odt] 4 mg PO Q8HR PRN #14 tab.rapdis 03/04/21 06/05/21 Unknown Rx Ibuprofen [Motrin 800 MG tab] 800 mg PO Q6H PRN #30 tablet 06/05/21 Unknown Rx oxyCODONE /ACETAMINOPHEN [Percocet 1 tab PO Q6H PRN #30 tablet 06/05/21 Unknown Rx 5/325 mg] Active Medications: Generic Name Dose Route Start Last Admin Trade Name Freq PRN Reason Stop Dose Admin Acetaminophen 650 mg 06/05/21 12:00 Acetaminophen 325 Mg Tab PO Q4H PRN Fever >100.5/CELESTIN Amoxicillin/Clavulanate Potassium 1 each 06/07/21 11:02 Amoxicillin/K Clav 875/125mg Tab PO 06/12/21 11:01 Q12HR MARK Protocol Carboprost Tromethamine 250 mcg 06/05/21 04:59 Carboprost Tromethamine 250 Mcg/1 Ml Inj IM ONCE PRN Uterine Bleeding Ephedrine Sulfate 10 mg 06/05/21 07:30 Ephedrine Sulfate 50 Mg/1 Ml Inj IV Q2M PRN Hypotension Hydrocortisone Acetate 25 mg 06/05/21 12:00 Hydrocortisone 25 Mg Rectal Supp [place] BID PRN Hemorrhoids Lactated Ringer's 1,000 mls @ 125 mls/hr 06/05/21 05:00 06/05/21 21:15 Lactated Ringers IV 125 mls/hr DIRECT MARK Administration Ampicillin Sodium 1 gm in 50 mls @ 100 mls/hr 06/05/21 06:00 Ampicillin/Ns 1 Gm/50 Ml IV Q4H MARK Protocol Fentanyl/Bupivacaine/Sodium Chlor 200 mcg in 100 mls @ 12 mls/hr 06/05/21 08:00 Fentanyl-Bupiv 2 Mcg/Ml-0.125% EPIDURAL TITR MARK Protocol Oxytocin/Sodium Chloride 30 units in 500 mls @ 40 mls/hr 06/05/21 12:00 Pitocin/Ns 30 Unit/500ml IV TITR MARK Protocol Ibuprofen 800 mg 06/05/21 12:00 06/07/21 06:00 Ibuprofen 800 Mg Tab PO 800 mg Q6H PRN Administration Pain, Mild (1-3) Loperamide HCl 2 mg 06/05/21 04:59 Loperamide 2 Mg Cap PO ONCE PRN give with Hemabate Magnesium Hydroxide 30 ml 06/05/21 22:00 Magnesium Hydroxide (Mom) Oral Liqd Udc PO QHS PRN Constip Unrelieved By Senna Methylergonovine Maleate 0.2 mg 06/05/21 04:59 Methylergonovine Maleate 0.2 Mg/Ml Vial IM ONCE PRN Uterine Bleeding Misoprostol 800 mcg 06/05/21 04:59 Misoprostol 200 Mcg Tab [place] ONCE PRN Uterine Bleeding Morphine Sulfate 4 mg 06/05/21 12:00 06/05/21 19:28 Morphine 4 Mg/1 Ml Inj IV 4 mg Q4H PRN Administration Pain , Severe (7-10) Multi-Ingredient Ointment 1 applic 06/05/21 12:00 06/06/21 10:19 Lanolin/Zinc/Dimethicone (Lansinoh) 7 Gm TP 1 applic PRN PRN Administration dryness/cracking Naloxone HCl 0.1 mg 06/05/21 12:00 Naloxone 0.4 Mg/1 Ml Inj IV Q2MIN PRN Res Rate </= 8 or 02 SAT < 92% Ondansetron HCl 4 mg 06/05/21 12:00 Ondansetron 4 Mg/2 Ml Inj IV Q8H PRN Nausea And Vomiting Oxycodone/Acetaminophen 1 tab 06/05/21 12:00 06/06/21 04:45 Oxycodone /Acetaminophen 5-325mg Tab PO 1 tab Q6H PRN Administration Pain, Moderate (4-6) Oxytocin 10 unit 06/05/21 04:59 Oxytocin 10 Unit/1 Ml Inj IM ONCE PRN Uterine Bleeding Promethazine HCl 25 mg 06/05/21 04:59 Promethazine 25 Mg Tab PO Q6H PRN Nausea And Vomiting Promethazine HCl 25 mg 06/05/21 12:00 Promethazine 25 Mg Rect Supp [place] Q6H PRN N/V IF NPO AND NO IV ACCESS Senna 17.2 mg 06/05/21 12:00 Sennosides 8.6 Mg Tab PO QHS PRN Constipation Simethicone 80 mg 06/05/21 12:00 Simethicone 80 Mg Chew Tab PO Q6H PRN Gas pain Sodium Chloride 10 ml 06/05/21 12:00 Sodium Chloride 0.9% 10 Ml Flush Syringe IV PRN PRN flush Witch Barbara/Glycerin 1 each 06/05/21 12:00 06/06/21 10:19 Witch Barbara/ Glycerin Pad TP 1 each PRN PRN Administration Hemorrhoids/cleansing/soothing
[2021-06-07] MEDS: AMOXICILLIN/K CLAV 875/125MG TAB PO SCH ×2 (14:11→21:29)
[2021-06-07] MEDS: oxyCODONE /ACETAMINOPHEN 5-325MG TAB PO PRN ×2 (14:18→21:29)
[2021-06-07] MEDS ORDERED: AMOXICILLIN/K CLAV 875/125MG TAB PO SCH (22:00)
[2021-06-08] MEDS: oxyCODONE /ACETAMINOPHEN 5-325MG TAB PO PRN (04:35)
--- NOTE | 2021-06-08 09:22 | Event Note ---
Date: 06/08/21 pt evaluated and wound incision now without drainage, small hematoma along left edge of wound. Pt may be discharged home on augmentin and wound care instructions to keep wound dry after shower given to pt. pt also to follow up in office in one wk. JULIANNE Shannon to discharge pt home later today.
[2021-06-08] MEDS: AMOXICILLIN/K CLAV 875/125MG TAB PO SCH (11:36)
--- NOTE | 2021-06-08 14:22 | Progress Note ---
Assessment and Plan A: /postop day 3 S/P repeat section. Anemia, on oral iron supplementation. P: Discharge patient home today. Discussed with patient /postop discharge instructions and warning signs. Care of incision and activity restrictions discussed with patient. Advised patient to continue taking her vitamins and iron supplements at home. Advised patient to avoid lifting, intercourse, housework, stair climbing, tub baths (patient may take showers), and driving. Advised patient to follow up at [facility]w in 1 week. Patient voiced understanding of all instructions. Subjective - Subjective Date of service: 06/08/21 Principal diagnosis: /postop day 3 S/P repeat section Interval history: Patient desires discharge home today. Discharge home today OK'd by . Patient reports: appetite normal, voiding normally, pain well controlled, flatus, ambulating normally, no dizzy ambulation, no nauseated [place]: doing well Objective - Vital Signs Latest vital signs: Vital Signs Temp Pulse Resp BP BP Pulse Ox Pulse Ox 06/08/21 09:15 99 06/08/21 08:18 98.0 F 83 18 114/71 98 06/08/21 00:20 99.2 F 93 H 20 116/67 100 06/07/21 21:29 98 06/07/21 15:22 99.1 F 111 H 19 136/70 97 Intake and Output 06/07/21 06/08/21 06/08/21 23:59 07:59 15:59 Intake Total 320 Balance 320 Intake: Oral 320 Other: Total, Intake Amount 320 # Voids Void 1 - Exam Cardiovascular: Present: Regular rate Lungs: Present: Clear to auscultation Abdomen: Present: normal appearance, soft, normal bowel sounds. Absent: distention, tenderness, guarding, rigidity Uterus: Present: normal, firm, fundal height below umbilicus (FH at U-2). Absent: bogginess, tenderness Extremities: Present: normal. Absent: tenderness, edema Incision: Present: dry, intact
--- NOTE | 2021-06-08 14:28 | Discharge Summary ---
Providers - Providers Date of Admission: 06/05/21 04:59 Date of discharge: 06/08/21 Attending physician: CYDNYE DELA CRUZ MD Primary care physician: CYDNEY DELA CRUZ MD Hospitalization Reason for admission: section Delivery: Procedure: repeat low transverse Incision: dry, intact Other procedures: none complications: none Discharge diagnosis: IUP at term delivered [place] baby: female Pertinent studies: Labs Hospital course: Uncomplicated hospital course Condition at discharge: Good Disposition: 01 HOME / SELF CARE / HOMELESS - Discharge Diagnoses (1) Term delivered Status: Acute (2) Anemia Status: Acute Plan - Discharge Medications Prescriptions: Amoxicillin/Potassium Clav [Augmentin 875-125 Tablet] 1 each PO BID 7 Days #14 tablet Ibuprofen [Motrin 800 MG tab] 800 mg PO Q6H PRN #30 tablet PRN Reason: Pain, Mild (1-3) oxyCODONE /ACETAMINOPHEN [Percocet 5/325 mg] 1 tab PO Q6H PRN #30 tablet PRN Reason: Pain, Moderate (4-6) - Provider Discharge Summary Activity: routine, no sex for 6 weeks, no heavy lifting 4 weeks, no strenuous exercise Diet: routine Instructions: routine Additional instructions: Please continue taking your vitamins and iron supplements at home. Follow up at [facility] in 1 week. Call your doctor immediately for: * Fever > 100.5 * Heavy vaginal bleeding ( >1 pad per hour) * Severe persistent headache * Shortness of breath * Reddened, hot, painful area to leg or breast * Drainage or odor from incision. * Keep incision clean and dry at all times and follow doctor's instructions regarding bathing/showering - Follow up plan Follow up: CYDNEY DELA CRUZ MD [Primary Care Provider] - 7 Days
[2021-06-08 16:56] VITALS: BP 111/64
[2021-06-08] MEDS: IBUPROFEN 800 MG TAB PO PRN (17:03)
== END 2021-06-08 19:10 | disposition home or self-care (01) | DRG 765 ==
LOC: TRG 02:50 → APU 02:52 → LD 04:59 → TRG 04:59 → OB 13:14
PROVIDERS: ADMIT Obstetrics & Gynecology; ATTEND Obstetrics & Gynecology
PROC: 10D00Z1 Extraction of Products of Conception, Low, Open Approach (ICD-10-PCS; principal; 2021-06-05)
DX: O34.211 Maternal care for low transverse scar from previous cesarean delivery (principal); O86.12 Endometritis following delivery; N85.8 Other specified noninflammatory disorders of uterus; Z20.822 Contact with and (suspected) exposure to COVID-19; Z3A.39 39 weeks gestation of pregnancy; Z37.0 Single live birth; O76 Abnormality in fetal heart rate and rhythm complicating labor and delivery; O90.81 Anemia of the puerperium
CPT/HCPCS: 36415; 59025; 85014; 85018; 85025; 86592; 86850; 86900; 86901; 96360; 96365; G0378; J0290; J0690; J1100; J1885; J2270; J2370; J2405; J2765; J7120; U0003

== ENCOUNTER 2021-06-22 05:11 | Emergency (ER) | payer MEDICAID ==
[2021-06-22 05:28] VITALS: BP 115/73
== END 2021-06-22 11:20 | disposition left against medical advice (07) ==
LOC: ED 05:11
DX: R10.9 Unspecified abdominal pain (principal); Z53.21 Procedure and treatment not carried out due to patient leaving prior to being seen by health care provider